=== PATIENT | female | born 1975 | race Caucasian/White ===

== ENCOUNTER 2024-08-30 18:47 | Emergency (ER) | payer OTHER ==
[~2024-08-30] VITALS: Ht 165.1 cm; Wt 81.7 kg
== END 2024-08-30 19:14 | disposition home or self-care (01) ==
LOC: ER 18:47
DX: S16.1XXA Strain of muscle, fascia and tendon at neck level, initial encounter (principal); R51.9 Headache, unspecified; V89.2XXA Person injured in unspecified motor-vehicle accident, traffic, initial encounter
CPT/HCPCS: 99283